=== PATIENT | female | born 1970 | race Caucasian/White ===

== ENCOUNTER 2017-07-29 03:17 | Emergency (ER) | payer MEDICAID ==
[~2017-07-29] VITALS: Ht 160 cm; Wt 63.0 kg
[~2017-07-29 03:17] MED LIST: ALBU8.5H3 INH; DOXY100T20 PO; PRED20TA PO
[2017-07-29 03:24] VITALS: Ht 160 cm; Wt 63.0 kg
[2017-07-29] MEDS ORDERED: KETOROLAC 60 MG INJ IM STA (05:18)
[2017-07-29] MEDS ORDERED: GUAI120S26 PO (05:21)
[2017-07-29] MEDS ORDERED: CETI10CA PO (05:21)
[2017-07-29] MEDS ORDERED: IBUP-1542 PO (05:21)
[2017-07-29] MEDS ORDERED: AMOX1TAB10 PO (05:21)
[2017-07-29] MEDS ORDERED: ALBU8.5H3 INH (05:35)
--- NOTE | 2017-07-29 05:36 | ERD ---
ER Documentation Chief Complaint Date/Time DATE: 07/29/17 TIME: 05:[address] +cough x3 days. denies fevers HPI 47-year-old female presents here to emergency department for multiple complaints. Patient is complaining of cough for 3 days, dry cough, does not cough up any phlegm or blood. Patient does not have any shortness of breath but has episodes of wheezing at times. Patient has been complaining of sore throat, burning pain, 4/10 scale, as was upon swallowing. Patient is also complaining of bilateral ear pain, throbbing pain, succession scale, denies any ear discharge. Patient denies any trauma in the ear. Patient did not take any medications to help with symptoms. Patient denies any fever or chills. ROS All systems reviewed and are negative except as per history of present illness. Medications Home Meds Active Scripts Albuterol Sulfate* (Proair HFA*) 8.5 Gm Hfa.aer.ad, 2 PUFF INH Q4, #1 INHALER Prov:CATARINO GORDON NP 07/29/17 Amoxicillin/Potassium Clav (Amox-Clav 875-125 mg Tablet) 875-125 mg Tab, 1 TAB PO BID for 10 Days, #20 TAB Prov:CATARINO GORDON NP 07/29/17 Ibuprofen* (Motrin*) 600 Mg Tab, 600 MG PO Q6H Y for PAIN AND OR ELEVATED TEMP, #30 TAB Prov:CATARINO GORDON NP 07/29/17 Cetirizine Hcl* (Zyrtec*) 10 Mg Capsule, 10 MG PO DAILY, #30 TAB.CHEW Prov:CATARINO GORDON NP 07/29/17 Dmuwktxdnvd-S-Uawjjwerfb Hb* (Guaifenesin* DM Syrup) 120 Ml Syrup, 10 ML PO Q4H Y for COUGH, #120 ML Prov:CATARINO GORDON NP 07/29/17 Doxycycline Hyclate* (Doxycycline Hyclate*) 100 Mg Tablet.dr, 100 MG PO BID for 10 Days, TAB Prov:AVNI BADILLO PA-C 08/13/16 Albuterol Sulfate* (Proair HFA*) 8.5 Gm Hfa.aer.ad, 2 PUFF INH Q4, #1 INHALER Prov:AVNI BADILLO PA-C 08/13/16 Prednisone* (Prednisone*) 20 Mg Tab, 40 MG PO DAILY for 4 Days, TAB Prov:AVNI BADILLO PA-C 08/13/16 Allergies Allergies: Coded Allergies: No Known Drug Allergy (Verified Allergy, Unknown, 01/15/08) PMhx/Soc History of Surgery: Yes (L ear surgery) Anesthesia Reaction: No Hx Neurological Disorder: No Hx Respiratory Disorders: No Hx Cardiac Disorders: No Hx Psychiatric Problems: No Hx Miscellaneous Medical Probl: No Hx Alcohol Use: No Hx Substance Use: No Hx Tobacco Use: No Smoking Status: Never smoker FmHx Family History: No coronary disease, No diabetes, No other Physical Exam Vitals Vital Signs Date Time Temp Pulse Resp B/P Pulse Ox O2 Delivery O2 Flow Rate FiO2 07/29/17 03:24 97.7 70 18 123/68 97 Physical Exam GENERAL: The patient is well developed and appropriate for usual state of health, in no apparent distress. HEENT: Atraumatic. Ears: Bilateral ear tympanic membrane noted to be erythematous and bulging. No ear canal swelling. No ear discharge. Nose: normal nasal turbinates, no erythema or swelling. Normal nasal discharge. Throat : oropharynx clear. No tonsillar swelling or tonsillar exudates. No lymphadenopathy. CHEST: Clear to auscultation bilaterally. There are no rales, wheezes or rhonchi. HEART: Regular rate and rhythm. No murmurs, clicks, rubs or gallops. No S3 or S4. ABDOMEN: Soft, nontender and nondistended. Good bowel sounds. No rebound or guarding. No gross peritonitis. No gross organomegaly or masses. No Sanz sign or McBurney point tenderness. BACK: No midline or flank tenderness. EXTREMITIES: Equal pulses bilaterally. There is no peripheral clubbing, cyanosis or edema. No focal swelling or erythema. Full range of motion. Grossly neurovascularly intact. NEURO: Alert and oriented. Cranial nerves 2-12 intact. Motor strength in all 4 extremities with 5/5 strength. Sensation grossly intact. Normal speech and gait. SKIN: There is no apparent rash or petechia. The skin is warm and dry. HEMATOLOGIC AND LYMPHATIC: There is no evidence of excessive bruising or lymphedema. No gross cervical, axillary, or inguinal lymphadenopathy. Results 24 hrs Current Medications Medications (Trade) Dose Ordered Sig/Seun Route PRN Reason Start Time Stop Time Status Last Admin Dose Admin Ketorolac Tromethamine (Toradol) 60 mg ONCE STAT IM 07/29/17 05:18 07/29/17 05:19 DC 07/29/17 05:27 Patient was given medication for pain here in emergency department, after treatment, patient verbalized feeling much better. Patient's pain is improved. Procedures/MDM Medical decision making: Patient symptoms is likely consistent with right otitis media. No symptoms of otitis externa or mastoiditis. No foreign body in the ear. No TM perforation. No cerumen impaction. Patient symptoms are most likely consistent with acute bronchitis, which viral in origin. There is low suspicion for Pneumonia at this time since patients lungs sounds are clear, patient O2 saturation is normal and patient doesnt show any respiratory distress. Radiogy exams not indicated at this time. There is low suspicion for other cardiopulmonary emergencies at this time such as CHF , Pulmonary Embolism, Pneumothorax, Aortic Aneurysm or any other cardiopulmonary emergencies at this time. There is low suspicion for sepsis. Patient appears well and is hemodynamically stable. Disposition: Home. Condition: Stable Prescriptions: Zyrtec, albuterol, guaifenesin DM, Augmentin, ibuprofen Instructions: Patient is advised to take medications as prescribed. Patient is advised to rest. Patient advised to increase fluid intake, do humidifier at home and if possible, do salt water gargles. Patient is advised that if symptoms are worse, shortness of breath, uncontrolled fever, stridor, vomiting, worst signs and symptoms to return to emergency department immediately. Otherwise, patient is advised to follow up with primary doctor in 5-7 days. Disclaimer: Inadvertent spelling and grammatical errors are likely due to EHR/ dictation software use and do not reflect on the overall quality of patient care. Also, please note that the electronic time recorded on this note does not necessarily reflect the actual time of the patient encounter. Disposition: Home. Stable. Prescription was given for amoxicillin, Zyrtec, ibuprofen, is advised to follow-up with primary care doctor in 2-3 days for reevaluation of symptoms. Patient is advised to avoid using Q-tips to clean the ear. Patient is advised to return to emergency department for any worsening symptoms. Disclaimer: Inadvertent spelling and grammatical errors are likely due to EHR/ dictation software use and do not reflect on the overall quality of patient care. Also, please note that the electronic time recorded on this note does not necessarily reflect the actual time of the patient encounter. Departure Diagnosis: Primary Impression: Acute bronchitis Bronchitis organism: unspecified organism Qualified Code: J20.9 - Acute bronchitis, unspecified organism Additional Impression: Otitis media Otitis media type: serous Chronicity: acute Laterality: bilateral Recurrence: not specified as recurrent Qualified Code: H65.03 - Bilateral acute serous otitis media, recurrence not specified Condition: Stable Patient Instructions: Otitis Media, Abx Tx (Adult) CATARINO GORDON NP Jul 29, 2017 05:36
== END 2017-07-29 05:54 | disposition home or self-care (01) ==
LOC: FTE 03:17
DX: J20.9 Acute bronchitis, unspecified (principal); H65.03 Acute serous otitis media, bilateral
CPT/HCPCS: 96372; J1885; Z7502

== ENCOUNTER 2019-06-07 17:37 | Emergency (ER) | payer MEDICAID ==
[~2019-06-07] VITALS: Ht 157.5 cm; Wt 63.6 kg
[~2019-06-07 17:37] MED LIST changes: -ALBU8.5H3 INH; +ALBU8.5H8 INH; +AMOX1TAB10 PO; +CETI10CA PO; +GUAI120S25 PO; +IBUP-1542 PO
[2019-06-07 17:43] VITALS: BP 123/71; PULSE 73; RESP 20; Ht 157.5 cm; Wt 63.6 kg
--- NOTE | 2019-06-07 17:43 | ERD ---
ER Documentation Chief Complaint Chief Complaint LT FACIAL NUMBNESS HPI The patient is a 49-year-old female, presenting to the ER because of acute left facial numbness for the last 8 days, was seen by his physician put on Valtrex/eye drops and prednisone for the last 5 days. She is not getting better, therefore she is here. He denies headache, neck pain, chest pain, dyspnea, abdominal pain, vomiting, dysuria, diarrhea. She does not smoke nor drink Past medical/surgical history: None ROS All systems reviewed and are negative except as per history of present illness. Medications Home Meds Active Scripts Albuterol Sulfate* (Proair HFA*) 8.5 Gm Hfa.aer.ad, 2 PUFF INH Q4, #1 INHALER Prov:CATARINO GORDON NP 07/29/17 Amoxicillin/Potassium Clav (Amox-Clav 875-125 mg Tablet) 875-125 mg Tab, 1 TAB PO BID for 10 Days, #20 TAB Prov:CATARINO GORDON NP 07/29/17 Ibuprofen* (Motrin*) 600 Mg Tab, 600 MG PO Q6H PRN for PAIN AND OR ELEVATED TEMP, #30 TAB Prov:CATARINO GORDON NP 07/29/17 Cetirizine Hcl* (Zyrtec*) 10 Mg Capsule, 10 MG PO DAILY, #30 TAB.CHEW Prov:CATARINO GORDON NP 07/29/17 Athdbvcwacp-O-Oslzrmfmuz Hb* (Guaifenesin* DM Syrup) 120 Ml Syrup, 10 ML PO Q4H PRN for COUGH, #120 ML Prov:CATARINO GORDON NP 07/29/17 Doxycycline Hyclate* (Doxycycline Hyclate*) 100 Mg Tablet.dr, 100 MG PO BID for 10 Days, TAB Prov:AVNI BADILLO PA-C 08/13/16 Albuterol Sulfate* (Proair HFA*) 8.5 Gm Hfa.aer.ad, 2 PUFF INH Q4, #1 INHALER Prov:AVNI BADILLO PA-C 08/13/16 Prednisone* (Prednisone*) 20 Mg Tab, 40 MG PO DAILY for 4 Days, TAB Prov:AVNI BADILLO PA-C 08/13/16 Allergies Allergies: Coded Allergies: No Known Drug Allergy (Verified Allergy, Unknown, 01/15/08) PMhx/Soc History of Surgery: Yes (L ear surgery) Anesthesia Reaction: No Hx Neurological Disorder: No Hx Respiratory Disorders: No Hx Cardiac Disorders: No Hx Psychiatric Problems: No Hx Miscellaneous Medical Probl: No Hx Alcohol Use: No Hx Substance Use: No Hx Tobacco Use: No Physical Exam Vitals Vital Signs Date Temp Pulse Resp B/P (MAP) Pulse Ox O2 O2 Flow FiO2 Time Delivery Rate 06/07/19 98.3 73 20 123/71 97 17:43 (88) Physical Exam Const: No acute distress. Head: Atraumatic. Eyes: Normal Conjunctiva. ENT: Normal External Ears, Nose and Mouth. Neck: Full range of motion. No meningismus. Resp: Clear to auscultation bilaterally. Cardio: Regular rate and rhythm. Abd: Soft, non distended, normal bowel sounds, non tender. Skin: No petechiae or rashes. Back: No midline or flank tenderness. Ext: No cyanosis, or edema. Neur: Awake and alert. No focal deficit. Left frontal muscle weakness, left facial droop, no nystagmus Psych: Normal Mood and Affect. Procedures/MDM MEDICAL MAKING DECISION: The patient is a 49-year-old female, presenting with recent Ramachandran palsy, is stable outpatient follow-up The differential diagnoses considered include but are not limited to Ramachandran's palsy, tia, cva Departure Diagnosis: Primary Impression: Ramachandran palsy Condition: Good Comments I discussed the findings with the patient. I advised the patient to follow-up with the primary physician in about 1-2 days, sooner if needed and return if any concern. Disclaimer: Inadvertent spelling and grammatical errors are likely due to EHR/dictation software use and do not reflect on the overall quality of patient care. Also, please note that the electronic time recorded on this note does not necessarily reflect the actual time of the patient encounter. INO HOLLIDAY MD Jun 07, 2019 17:43
== END 2019-06-07 18:05 | disposition home or self-care (01) ==
LOC: E/R 17:37
DX: G51.0 Bell's palsy (principal)
CPT/HCPCS: 99282

== ENCOUNTER 2019-06-28 08:56 | Inpatient (IN) | payer MEDICAID ==
[~2019-06-28] VITALS: Ht 157.5 cm; Wt 80.0 kg
[~2019-06-28 08:56] MED LIST changes: +CEPH500C PO
[2019-06-28 09:01] VITALS: Ht 157.5 cm; Wt 80.0 kg
[2019-06-28] MEDS ORDERED: ONDANSETRON 4 MG INJ IV STA (09:43)
[2019-06-28] MEDS ORDERED: SOD CHLORIDE 0.9% 1,000 ML IV STA (09:43)
[2019-06-28] MEDS ORDERED: CEFTRIAXONE 1 GM/50 ML (PMX) 50 ML IVPB STA (09:43)
[2019-06-28] MEDS ORDERED: HYDROmorphONE 1 MG/ML SYG IV STA ×2 (09:43→15:02)
[2019-06-28] MEDS ORDERED: ACETAMINOPHEN 500 MG TAB PO STA (10:44)
[2019-06-28] MEDS ORDERED: ONDANSETRON 4 MG INJ IV PRN ×2 (14:00→17:30)
[2019-06-28] MEDS ORDERED: ACETAMINOPHEN 325 MG TAB PO PRN (14:00)
[2019-06-28] MEDS ORDERED: ZOLPIDEM 5 MG TAB PO PRN (17:30)
[2019-06-28] MEDS ORDERED: DOCUSATE SODIUM 100 MG CAP PO PRN (17:30)
[2019-06-28] MEDS ORDERED: NACL 0.9% 3 ML SYG IV SCH (17:30)
[2019-06-28] MEDS ORDERED: morphine 2 MG INJ IV PRN (17:30)
[2019-06-28] MEDS ORDERED: HYDROCODONE/APAP (5/325) TAB PO PRN (17:30)
[2019-06-28] MEDS: SOD CHLORIDE 0.9% 1,000 ML IV SCH (17:39)
[2019-06-28 17:43] VITALS: BP 118/59; PULSE 91; RESP 19
[2019-06-28 19:49] VITALS: BP 119/57; PULSE 94; RESP 18
[2019-06-28] MEDS: ACETAMINOPHEN 325 MG TAB PO PRN (22:37)
[2019-06-29] VITALS (8 sets, daily range): BP systolic 92–125; BP diastolic 52–75; PULSE 72–90; RESP 14–20
[2019-06-29] MEDS: SOD CHLORIDE 0.9% 1,000 ML IV SCH ×3 (03:44→23:26)
[2019-06-29] MEDS: CEFTRIAXONE 1 GM/50 ML (PMX) 50 ML IVPB SCH (09:33)
[2019-06-29] MEDS: ACETAMINOPHEN 325 MG TAB PO PRN (19:35)
[2019-06-30 00:30] VITALS: BP 123/72; PULSE 78; RESP 14
[2019-06-30 01:54] VITALS: BP 103/51; PULSE 67; RESP 18
[2019-06-30 08:00] VITALS: BP 104/68; PULSE 68; RESP 18
[2019-06-30] MEDS: SOD CHLORIDE 0.9% 1,000 ML IV SCH (09:26)
[2019-06-30] MEDS: CEFTRIAXONE 1 GM/50 ML (PMX) 50 ML IVPB SCH (09:54)
== END 2019-06-30 16:28 | disposition home or self-care (01) | DRG 872 ==
LOC: E/R 08:56 → MS1 13:50
PROVIDERS: ADMIT Internal Medicine; ATTEND Internal Medicine
DX: A41.9 Sepsis, unspecified organism (principal); N17.9 Acute kidney failure, unspecified; N13.6 Pyonephrosis; K76.0 Fatty (change of) liver, not elsewhere classified; R31.9 Hematuria, unspecified
CPT/HCPCS: 36415; 74176; 76775; 80048; 80053; 81001; 83036; 83735; 84100; 84703; 85025; 87086; 96361; 96365; 96375; A4310; J0696; J1170; J2405; J7030